=== PATIENT | male | born 1970 | race Caucasian/White ===

== ENCOUNTER 2019-07-26 16:27 | Emergency (ER) | payer OTHER, BC ==
[2019-07-26] MEDS ORDERED: LIDOCAINE 5% (700 MG) TRANSDERMAL ADH..PATCH TP ONE (16:58)
[2019-07-26] MEDS ORDERED: KETOROLAC TROMETHAMINE 60 MG/2 ML SDV IM ONE (16:58)
[2019-07-26] MEDS ORDERED: ACETAMINOPHEN 325 MG TABLET PO ONE (16:58)
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
[2019-07-26] MEDS ORDERED: KETOROLAC TROMETHAMINE 60 MG/2 ML SDV ONE (17:31)
[2019-07-26 18:02] VITALS: BP 150/98
== END 2019-07-26 17:56 | disposition home or self-care (01) ==
LOC: ER 16:27
DX: M54.6 Pain in thoracic spine (principal); V69.40XA Driver of heavy transport vehicle injured in collision with unspecified motor vehicles in traffic accident, initial encounter
CPT/HCPCS: 99283; 96372; J1885